=== PATIENT | female | born 1990 | race Caucasian/White ===

== ENCOUNTER 2016-06-02 17:32 | Emergency (ER) | payer OTHER ==
[2016-06-02] MEDS ORDERED: ONDANSETRON 4MG/2ML VIAL (J2405) As Ordered ONE (19:12)
[2016-06-02] MEDS ORDERED: PANTOPRAZOLE 40MG INJ (PROTONIX) (C9113) As Ordered ONE (19:12)
[2016-06-02 19:37] LABS: BASO % 0.1 % (0.0-1.0); EOS # 0.1 K/mm3 (0.0-0.50); EOS % 0.5 % (0.0-3.0); LARGE UNSTAINED CELL # 0.1 K/mm3 (0.0-0.4); LARGE UNSTAINED CELL % 0.7 % (0.0-4.0); LYMPH # 0.6 K/mm3 (1.5-6.5); LYMPH % 4.8 % (24.0-44.0); MEAN CORPUSCULAR HEMOGLOBIN 32.2 pg (27.0-33.0); MEAN CORPUSCULAR HGB CONC 34.1 g/dl (32.0-36.5); MEAN CORPUSCULAR VOLUME 94.6 fl (80.0-96.0); MONO # 0.3 K/mm3 (0.0-0.8); MONO % 2.2 % (0.0-5.0); NEUTROPHILS # 12.2 K/mm3 (1.8-7.7); NEUTROPHILS % 91.8 % (36.0-66.0); PLATELET COUNT, AUTOMATED 181 k/mm3 (150-450); RED CELL DISTRIBUTION WIDTH 11.8 % (11.5-14.5); WHITE BLOOD COUNT 13.2 K/mm3 (4.0-10.0)
[2016-06-02 19:57] LABS: ALBUMIN 4.1 GM/DL (3.2-5.2); ALBUMIN/GLOBULIN RATIO 1.17 (1.00-1.93); ALKALINE PHOSPHATASE 95 U/L (45-117); ALT/SGPT 45 U/L (12-78); AMYLASE 53 U/L (25-115); ANION GAP 8 MEQ/L (8-16); AST/SGOT 30 U/L (15-37); BILIRUBIN,DIRECT 0.1 MG/DL (0.0-0.2); BILIRUBIN,TOTAL 0.7 MG/DL (0.2-1.0); BLOOD UREA NITROGEN 14 MG/DL (7-18); CALCIUM LEVEL 9.1 MG/DL (8.5-10.1); CARBON DIOXIDE LEVEL 28 MEQ/L (21-32); CHLORIDE LEVEL 103 MEQ/L (98-107); CREATININE FOR GFR 0.92 MG/DL (0.55-1.02); GLOMERULAR FILTRATION RATE > 60.0 (>60); GLUCOSE, FASTING 101 MG/DL (70-105); POTASSIUM SERUM 3.7 MEQ/L (3.5-5.1); SODIUM LEVEL 139 MEQ/L (136-145); TOTAL PROTEIN 7.6 GM/DL (6.4-8.2)
[2016-06-02] MEDS ORDERED: NITROFURANTOIN (MACROBID) 100 MG CAP As Ordered ONE (20:42)
--- NOTE | 2016-06-02 20:49 | EDDOCDS ---
Physician Documentation [facility] Name: Neena Escoto Age: 25 yrs Sex: Female : 1990 Arrival Date: 06/02/2016 Time: 17:32 Bed I5 / M5 Private MD: MILTON Cardenas Disposition: 06/02/16 20:39 Discharged to Home/Self Care. Impression: Nausea and vomiting, Urinary tract infection, site not specified. - Condition is Stable. - Discharge Instructions: Nausea and Vomiting, Urinary Tract Infection. - Prescriptions for Prilosec 20 mg Oral Capsule - take 1 capsule by ORAL route once daily; 10 capsule. Macrobid 100 mg Oral Capsule - take 100 milligram by ORAL route every 12 hours for 10 days; 20 capsule. ZOFRAN ODT 4 mg - dissolve 1 tablet by ORAL route 4 times per day As needed do not chew, do not swallow whole; 10 tablet. - Medication Reconciliation, Local Pharmacy Hours form. - Follow up: MILTON Cardenas; When: Tomorrow; Reason: Recheck today's complaints, Continuance of care. - Problem is new. - Symptoms have improved. - Notes: USE MEDICATIONS INSTRUCTED, FOLLOW UP WITH YOUR DOCTOR TOMORROW, RETURN TO THE ER IF THE SYMPTOMS WORSEN OR BECOME CONCERNING Historical: - Allergies: no known allergies; - Home Meds: 1. none - PMHx: none; - PSHx: right ankle; - Social history: Smoking status: Patient states was never smoker of tobacco. No barriers to communication noted, The patient speaks fluent Slovak, Speaks appropriately for age. - Family history: Not pertinent. - : The pt / caregiver states he / she is not on anticoagulants. Home medication list is obtained from the patient. - Exposure Risk Screening:: None identified. 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 4 in. (162.56 cm); Pain 7/10; 19:56 BP 109 / 59 LA Supine (auto/reg); Pulse 95; Resp 18; Temp 98.3; Pulse Ox 99% ; ajs 19:56 BP 110 / 63 LA Standing (auto/reg); Pulse 93; ajs 19:56 BP 108 / 64 LA Sitting (auto/reg); Pulse 95; ajs 17:33 Body Mass Index 24.89 (65.77 kg, 162.56 cm) dem1 MDM: 18:59 Undress patient appropriately for examination ordered. ck7 18:59 UCG by Nursing ordered. ck7 18:59 IV Saline Lock ordered. ck7 18:59 NS 0.9% 1000 ml IV at bolus once ordered. ck7 18:59 Orthostatic VS ordered. ck7 18:59 Ondansetron 4 mg IVP once ordered. ck7 18:59 pantoprazole 40 mg IV at bolus once ordered. ck7 19:00 Amylase Ordered. EDMS 19:00 Basic Metabolic Profile Ordered. EDMS 19:00 CBC with Diff Ordered. EDMS 19:00 Lipase Ordered. EDMS 19:00 Liver Profile Ordered. EDMS 19:00 Urinalysis Ordered. EDMS 19:00 Urine Culture Ordered. EDMS 19:01 NOTHING BY MOUTH+DIET ordered. EDMS 19:57 CBC with Diff Reviewed. ck7 19:57 Urinalysis Reviewed. ck7 20:02 Amylase Reviewed. ck7 20:02 Basic Metabolic Profile Reviewed. ck7 20:02 Lipase Reviewed. ck7 20:02 Liver Profile Reviewed. ck7 20:27 Financial registration complete. gjb 20:36 Fluid Challenge ordered. ck7 20:39 Nitrofurantoin 100 mg PO once ordered. ck7 Point of Care Testing: Urine : 19:09 hCG Reading: Negative; Control Reading: Positive; ar3 Ranges: Administered Medications: 19:25 Drug: NS 0.9% 1000 ml [sodium chloride 0.9 % injection solution] Route: IV; Rate: rs3 bolus; Site: left antecubital; 19:30 Drug: Ondansetron 4 mg [ondansetron HCl 2 mg/mL intravenous solution (2 mL)] Route: rs3 IVP; Site: left antecubital; 19:35 Drug: pantoprazole 40 mg [pantoprazole 40 mg intravenous solution] Route: IV; Rate: rs3 bolus; Site: left antecubital; 20:47 Drug: Nitrofurantoin 100 mg Route: PO; rs3 Signatures: Dispatcher [employer] EDMS Velia GibsonRN RN rs3 Riley Mcdaniel, RPA-C RPA-Cck7 Asia Oviedo,RN RN Amena Pineda MTDD
--- NOTE | 2016-06-02 20:49 | EDDOCDS ---
Nurse's Notes [facility] Name: Neena Escoto Age: 25 yrs Sex: Female : 1990 Arrival Date: 06/02/2016 Time: 17:32 Bed I5 / M5 Private MD: MILTON Cardenas Diagnosis: Nausea and vomiting;Urinary tract infection, site not specified Presentation: 06/02 17:47 Presenting complaint: Patient states: pt c/o n/v and body aches. reports onset of ead vomiting this morning. Adult Sepsis Screening: The patient does not have new or worsening altered mentation. Systolic blood pressure is greater than 100. Patient has a qSOFA score of 0- Negative Sepsis Screen. Suicide/Homicide risk assessment- the patient denies having any suicidal and/or homicidal ideations and does not present with any other emotional, behavioral or mental health complaints. 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 Transition of care: patient was not received from another setting of care. 17:47 Acuity: MELISSA Level 3 ead 17:47 Method Of Arrival: Walkin/Carried/Asstd ead Triage Assessment: 17:49 General: Appears in no apparent distress, comfortable, well nourished, well groomed, ead Behavior is appropriate for age, cooperative, pleasant. Pain: Location: all over body aches Pain currently is 5 out of 10 on a pain scale. Respiratory: Airway is patent Respiratory effort is even, unlabored. GI: Reports nausea, vomiting. Derm: Skin is pink, warm & dry. 17:50 Pt Declines HIV testing. ead LAWN MOWER: 17:49 LMP 05/11/2016 ead Historical: - Allergies: no known allergies; - Home Meds: 1. none - PMHx: none; - PSHx: right ankle; - Social history: Smoking status: Patient states was never smoker of tobacco. No barriers to communication noted, The patient speaks fluent Irish, Speaks appropriately for age. - Family history: Not pertinent. - : The pt / caregiver states he / she is not on anticoagulants. Home medication list is obtained from the patient. - Exposure Risk Screening:: None identified. Screenin:36 Screening information is obtained from the patient. Fall risk: No risks identified. rs3 Assistance ADL's: requires no assistance with activities of daily living. Abuse/DV Screen: The patient / caregiver reports he/she is: not in a situation that causes fear, pain or injury. Nutritional screening: No deficits noted. Advance Directives: Currently, there is no health care proxy. There is no active DNR order. home support is adequate. Assessment: 19:36 Adult Sepsis Screening: The patient does not have new or worsening altered mentation. rs3 Patient's respiratory rate is less than 22. Systolic blood pressure is greater than 100. General: Appears in no apparent distress, comfortable, Behavior is appropriate for age, cooperative. Pain: Location: right upper quadrant and left upper quadrant Pain currently is 5 out of 10 on a pain scale. Neurological: Level of Consciousness is awake, alert, Oriented to person, place, time. Cardiovascular: Capillary refill < 3 seconds. Cardiovascular: Heart tones S1 S2 present Chest pain is denied. Respiratory: Airway is patent Respiratory effort is even, unlabored, Respiratory pattern is regular, symmetrical. GI: Abdomen is flat, non- distended Bowel sounds present X 4 quads. Abd is soft and non tender X 4 quads. Derm: Skin is pink, warm & dry. 20:47 Reassessment: Patient appears in no apparent distress at this time. Patient denies pain rs3 at this time. Patient states feeling better. Patient states symptoms have improved. Vital Signs: 17:33 BP 132 / 76; Pulse 129; Resp 18; Temp 99.8(O); Pulse Ox 96% on R/A; Weight 65.77 kg; dem1 Height 5 ft. 4 in. (162.56 cm); Pain 7/10; 19:56 BP 109 / 59 LA Supine (auto/reg); Pulse 95; Resp 18; Temp 98.3; Pulse Ox 99% ; ajs 19:56 BP 110 / 63 LA Standing (auto/reg); Pulse 93; ajs 19:56 BP 108 / 64 LA Sitting (auto/reg); Pulse 95; ajs 17:33 Body Mass Index 24.89 (65.77 kg, 162.56 cm) [facility] Vitals: 17:33 Log In Time: June 02, 2016 at 17:30. [facility] ED Course: 17:32 Patient visited by Gabriella Donovan. [facility] 17:32 Patient moved to Waiting [facility] 17:33 Theresa [facility] is Private Physician. dem1 17:33 Patient visited by Gabriella Donovan. dem1 17:46 Patient moved to Pre RCE ead 17:48 Triage Initiated ead 18:36 Patient moved to Triage 3 ml6 18:47 Riley Mcdaniel R[facility]-C [facility] ck7 18:47 Anthony Ewing DO is Attending Physician. ck7 18:47 Patient visited by Riley Mcdaniel RPA-C. ck7 19:04 Jacki Lares, SHALOM is Primary Nurse. js13 19:04 Patient moved to I5 / M5 js13 19:04 Urinalysis Sent. ar3 19:04 Urine Culture Sent. ar3 19:06 Primary Nurse role handed off by Jacki Lares, SHALOM jjr 19:10 Patient visited by Leydi Bennett PCA. ar3 19:36 The patient / caregiver is instructed regarding the plan of care and ED course. rs3 19:36 Inserted saline lock: 20 gauge in left antecubital area The patient tolerated the rs3 procedure well. No procedures done that require assistance. 19:38 Patient visited by Velia Gibson RN. rs3 19:57 Patient visited by Missy Nicholas. ajs 20:36 Patient visited by Riley Mcdaniel RPA-C. ck7 20:39 MILTON Cardenas is Referral Physician. ck7 Administered Medications: 19:25 Drug: NS 0.9% 1000 ml [sodium chloride 0.9 % injection solution] Route: IV; Rate: rs3 bolus; Site: left antecubital; 19:30 Drug: Ondansetron 4 mg [ondansetron HCl 2 mg/mL intravenous solution (2 mL)] Route: rs3 IVP; Site: left antecubital; 19:35 Drug: pantoprazole 40 mg [pantoprazole 40 mg intravenous solution] Route: IV; Rate: rs3 bolus; Site: left antecubital; 20:47 Drug: Nitrofurantoin 100 mg Route: PO; rs3 Point of Care Testing: Urine : 19:09 hCG Reading: Negative; Control Reading: Positive; ar3 Ranges: Order Results: Lab Order: Amylase; SPEC'M 06/02/16 19:24 Test: AMYLASE; Value: 53; Range: 25-115; Units: U/L; Status: F Lab Order: Basic Metabolic Profile; SPEC'M 06/02/16 19:24 Test: GLUCOSE, FASTING; Value: 101; Range: 70-105; Units: MG/DL; Status: F Test: BLOOD UREA NITROGEN; Value: 14; Range: 7-18; Units: MG/DL; Status: F Test: CREATININE FOR GFR; Value: 0.92; Range: 0.55-1.02; Units: MG/DL; Status: F Test: GLOMERULAR FILTRATION RATE; Value: > 60.0; Range: >60; Status: F Test: SODIUM LEVEL; Value: 139; Range: 136-145; Units: MEQ/L; Status: F Test: POTASSIUM SERUM; Value: 3.7; Range: 3.5-5.1; Units: MEQ/L; Status: F Test: CHLORIDE LEVEL; Value: 103; Range: 98-107; Units: MEQ/L; Status: F Test: CARBON DIOXIDE LEVEL; Value: 28; Range: 21-32; Units: MEQ/L; Status: F Test: ANION GAP; Value: 8; Range: 8-16; Units: MEQ/L; Status: F Test: CALCIUM LEVEL; Value: 9.1; Range: 8.5-10.1; Units: MG/DL; Status: F Test Note: ; Units are mL/min/1.73 m2 Chronic Kidney Disease Staging per NKF: Stage I & II GFR >=60 Normal to Mildly Decreased Stage III GFR 30-59 Moderately Decreased Stage IV GFR 15-29 Severely Decreased Stage V GFR <15 Very Little GFR Left ESRD GFR <15 on [employer]RO[employer] ATTENDANT Lab Order: CBC with Diff; SPEC'M 06/02/16 19:24 Test: WHITE BLOOD COUNT; Value: 13.2; Range: 4.0-10.0; Abnormal: Above high normal; Units: K/mm3; Status: F Test: RED BLOOD COUNT; Value: 4.14; Range: 4.00-5.40; Units: M/mm3; Status: F Test: HEMOGLOBIN; Value: 13.4; Range: 12.0-16.0; Units: g/dl; Status: F Test: HEMATOCRIT; Value: 39.2; Range: 36.0-47.0; Units: %; Status: F Test: MEAN CORPUSCULAR VOLUME; Value: 94.6; Range: 80.0-96.0; Units: fl; Status: F Test: MEAN CORPUSCULAR HEMOGLOBIN; Value: 32.2; Range: 27.0-33.0; Units: pg; Status: F Test: MEAN CORPUSCULAR HGB CONC; Value: 34.1; Range: 32.0-36.5; Units: g/dl; Status: F Test: RED CELL DISTRIBUTION WIDTH; Value: 11.8; Range: 11.5-14.5; Units: %; Status: F Test: PLATELET COUNT, AUTOMATED; Value: 181; Range: 150-450; Units: k/mm3; Status: F Test: NEUTROPHILS %; Value: 91.8; Range: 36.0-66.0; Abnormal: Above high normal; Units: %; Status: F Test: LYMPH %; Value: 4.8; Range: 24.0-44.0; Abnormal: Below low normal; Units: %; Status: F Test: MONO %; Value: 2.2; Range: 0.0-5.0; Units: %; Status: F Test: EOS %; Value: 0.5; Range: 0.0-3.0; Units: %; Status: F Test: BASO %; Value: 0.1; Range: 0.0-1.0; Units: %; Status: F Test: LARGE UNSTAINED CELL %; Value: 0.7; Range: 0.0-4.0; Units: %; Status: F Test: NEUTROPHILS #; Value: 12.2; Range: 1.8-7.7; Abnormal: Above high normal; Units: K/mm3; Status: F Test: LYMPH #; Value: 0.6; Range: 1.5-6.5; Abnormal: Below low normal; Units: K/mm3; Status: F Test: MONO #; Value: 0.3; Range: 0.0-0.8; Units: K/mm3; Status: F Test: EOS #; Value: 0.1; Range: 0.0-0.50; Units: K/mm3; Status: F Test: BASO #; Value: 0.0; Range: 0.0-0.2; Units: K/mm3; Status: F Test: LARGE UNSTAINED CELL #; Value: 0.1; Range: 0.0-0.4; Units: K/mm3; Status: F Lab Order: Lipase; [facility] 06/02/16 19:24 Test: LIPASE; Value: 89; Range: 73-393; Units: U/L; Status: F Lab Order: Liver Profile; [facility] 06/02/16 19:24 Test: AST/SGOT; Value: 30; Range: 15-37; Units: U/L; Status: F Test: ALT/SGPT; Value: 45; Range: 12-78; Units: U/L; Status: F Test: ALKALINE PHOSPHATASE; Value: 95; Range: 45-117; Units: U/L; Status: F Test: BILIRUBIN,TOTAL; Value: 0.7; Range: 0.2-1.0; Units: MG/DL; Status: F Test: BILIRUBIN,DIRECT; Value: 0.1; Range: 0.0-0.2; Units: MG/DL; Status: F Test: TOTAL PROTEIN; Value: 7.6; Range: 6.4-8.2; Units: GM/DL; Status: F Test: ALBUMIN; Value: 4.1; Range: 3.2-5.2; Units: GM/DL; Status: F Test: ALBUMIN/GLOBULIN RATIO; Value: 1.17; Range: 1.00-1.93; Status: F Lab Order: Urinalysis; [facility]' 06/02/16 19:04 Test: APPEARANCE, URINE; Value: HAZY; Range: CLEAR; Status: F Test: COLOR, URINE; Value: YELLOW; Range: YELLOW; Status: F Test: PH,URINE; Value: 6.0; Range: 5.0-9.0; Units: UNITS; Status: F Test: SPECIFIC GRAVITY URINE AUTO; Value: 1.026; Range: 1.002-1.035; Status: F Test: PROTEIN, URINE AUTO; Value: 1+; Range: NEGATIVE; Abnormal: Above high normal; Units: mg/dL; Status: F Test: GLUCOSE, URINE (UA) AUTO; Value: NEGATIVE; Range: NEGATIVE; Units: mg/dL; Status: F Test: KETONE, URINE AUTO; Value: NEGATIVE; Range: NEGATIVE; Units: mg/dL; Status: F Test: UROBILINOGEN, URINE AUTO; Value: 0.2; Range: 0.0-2.0; Units: mg/dL; Status: F Test: BILIRUBIN, URINE AUTO; Value: NEGATIVE; Range: NEGATIVE; Status: F Test: NITRITE, URINE AUTO; Value: NEGATIVE; Range: NEGATIVE; Status: F Test: LEUKOCYTE ESTERASE, URINE AUTO; Value: 2+; Range: NEGATIVE; Abnormal: Above high normal; Status: F Test: BLOOD, URINE BLOOD; Value: NEGATIVE; Range: NEGATIVE; Status: F Test: WBC, URINE AUTO; Value: 8; Range: 0-3; Abnormal: Above high normal; Units: /HPF; Status: F Test: RBC, URINE AUTO; Value: 6; Range: 0-3; Abnormal: Above high normal; Units: /HPF; Status: F Test: BACTERIA, URINE AUTO; Value: 1+; Range: NEGATIVE; Abnormal: Above high normal; Status: F Test: SQUAMOUS EPITHELIAL CELL UR AU; Value: 5; Range: 0-6; Units: /HPF; Status: F Test: MUCUS, URINE; Value: LARGE; Range: NEGATIVE; Status: F Test: HYALINE CAST, URINE AUTO; Value: 0; Range: 0-1; Units: /LPF; Status: F Outcome: 20:39 Discharge ordered by Provider. ck7 20:47 Discharge Assessment: patient administered narcotics - no. The following High Risk rs3 Discharge criteria are identified: None. Discharged to home with family. Condition: stable. Discharge instructions given to patient, Instructed on discharge instructions, follow up and referral plans. medication usage, Demonstrated understanding of instructions, medications, Pt was receptive of discharge instructions/ teaching. Prescriptions given X 3. No special radiology studies were completed. Property :Personal belongings accompany Pt. 20:47 Patient left the ED. rs3 Signatures: Jacki Lares RN RN Velia BrennanRN RN rs3 Ravi Martinez RN RN ml6 Leydi Bennett, HISTOLOGIC TECHNICIAN HISTOLOGIC TECHNICIAN ar3 Missy Nicholas Demeishia dem1 Sullivan, JenniferRN RN js13 Riley Mcdaniel, RPA-C RPA-Cck7 Asia OviedoRN RN jaime Corrections: (The following items were deleted from the chart) 17:34 17:33 BP 132 / 6; Pulse 129bpm; Resp 18bpm; Pulse Ox 96% RA; Temp 99.8F Oral; 65.77 kg; dem1 Height 5 ft. 4 in.; BMI: 24.8; Pain 7/10; dem1 MTDD
--- NOTE | 2016-06-04 21:48 | EDDOCDS ---
Physician Documentation [facility] Name: Neena Escoto Age: 25 yrs Sex: Female : 1990 Arrival Date: 06/02/2016 Time: 17:32 Bed I5 / M5 Private MD: MILTON Cardenas Disposition: 06/02/16 20:39 Discharged to Home/Self Care. Impression: Nausea and vomiting, Urinary tract infection, site not specified. - Condition is Stable. - Discharge Instructions: Nausea and Vomiting, Urinary Tract Infection. - Prescriptions for Prilosec 20 mg Oral Capsule - take 1 capsule by ORAL route once daily; 10 capsule. Macrobid 100 mg Oral Capsule - take 100 milligram by ORAL route every 12 hours for 10 days; 20 capsule. ZOFRAN ODT 4 mg - dissolve 1 tablet by ORAL route 4 times per day As needed do not chew, do not swallow whole; 10 tablet. - Medication Reconciliation, Local Pharmacy Hours form. - Follow up: MILTON Cardenas; When: Tomorrow; Reason: Recheck today's complaints, Continuance of care. - Problem is new. - Symptoms have improved. - Notes: USE MEDICATIONS INSTRUCTED, FOLLOW UP WITH YOUR DOCTOR TOMORROW, RETURN TO THE ER IF THE SYMPTOMS WORSEN OR BECOME CONCERNING Historical: - Allergies: no known allergies; - Home Meds: 1. none - PMHx: none; - PSHx: right ankle; - Social history: Smoking status: Patient states was never smoker of tobacco. No barriers to communication noted, The patient speaks fluent [place], Speaks appropriately for age. - Family history: Not pertinent. - : The pt / caregiver states he / she is not on anticoagulants. Home medication list is obtained from the patient. - Exposure Risk Screening:: None identified. 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 4 in. (162.56 cm); Pain 7/10; 19:56 BP 109 / 59 LA Supine (auto/reg); Pulse 95; Resp 18; Temp 98.3; Pulse Ox 99% ; ajs 19:56 BP 110 / 63 LA Standing (auto/reg); Pulse 93; ajs 19:56 BP 108 / 64 LA Sitting (auto/reg); Pulse 95; ajs 17:33 Body Mass Index 24.89 (65.77 kg, 162.56 cm) dem1 MDM: 18:59 Undress patient appropriately for examination ordered. ck7 18:59 UCG by Nursing ordered. ck7 18:59 IV Saline Lock ordered. ck7 18:59 NS 0.9% 1000 ml IV at bolus once ordered. ck7 18:59 Orthostatic VS ordered. ck7 18:59 Ondansetron 4 mg IVP once ordered. ck7 18:59 pantoprazole 40 mg IV at bolus once ordered. ck7 19:00 Amylase Ordered. EDMS 19:00 Basic Metabolic Profile Ordered. EDMS 19:00 CBC with Diff Ordered. EDMS 19:00 Lipase Ordered. EDMS 19:00 Liver Profile Ordered. EDMS 19:00 Urinalysis Ordered. EDMS 19:00 Urine Culture Ordered. EDMS 19:01 NOTHING BY MOUTH+DIET ordered. EDMS 19:57 CBC with Diff Reviewed. ck7 19:57 Urinalysis Reviewed. ck7 20:02 Amylase Reviewed. ck7 20:02 Basic Metabolic Profile Reviewed. ck7 20:02 Lipase Reviewed. ck7 20:02 Liver Profile Reviewed. ck7 20:27 Financial registration complete. gjb 20:36 Fluid Challenge ordered. ck7 20:39 Nitrofurantoin 100 mg PO once ordered. ck7 21:21 [facility] Payment Agreement was scanned into [employer] and attached to record. b 06/03 11:10 T-Sheet-- Draft Copy was scanned into [employer] and attached to record. Point of Care Testing: Urine : 06/02 19:09 hCG Reading: Negative; Control Reading: Positive; ar3 Ranges: Administered Medications: 19:25 Drug: NS 0.9% 1000 ml [sodium chloride 0.9 % injection solution] Route: IV; Rate: rs3 bolus; Site: left antecubital; 19:30 Drug: Ondansetron 4 mg [ondansetron HCl 2 mg/mL intravenous solution (2 mL)] Route: rs3 IVP; Site: left antecubital; 19:35 Drug: pantoprazole 40 mg [pantoprazole 40 mg intravenous solution] Route: IV; Rate: rs3 bolus; Site: left antecubital; 20:47 Drug: Nitrofurantoin 100 mg Route: PO; rs3 Signatures: Dispatcher [employer] Ciara Velasquez, Reg Reg gb Velia Gibson,SHALOM RN rs3 Riley Mcdaniel, RPA-C RPA-Cck7 Asia Oviedo RN RN ead Beck, Gabriela gjb The chart was reviewed and I authenticate all verbal orders and agree with the evaluation and treatment provided.Attachments: 21:21 [facility] Payment Agreement gjb 06/03 11:10 T-Sheet-- Draft Copy gb Chart Complete MTDD
--- NOTE | 2016-06-04 21:48 | EDDOCDS ---
Nurse's Notes [facility] Name: Neena Escoto Age: 25 yrs Sex: Female : 1990 Arrival Date: 06/02/2016 Time: 17:32 Bed I5 / M5 Private MD: MILTON Cardenas Diagnosis: Nausea and vomiting;Urinary tract infection, site not specified Presentation: 06/02 17:47 Presenting complaint: Patient states: pt c/o n/v and body aches. reports onset of ead vomiting this morning. Adult Sepsis Screening: The patient does not have new or worsening altered mentation. Systolic blood pressure is greater than 100. Patient has a qSOFA score of 0- Negative Sepsis Screen. Suicide/Homicide risk assessment- the patient denies having any suicidal and/or homicidal ideations and does not present with any other emotional, behavioral or mental health complaints. 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 Transition of care: patient was not received from another setting of care. 17:47 Acuity: MELISSA Level 3 ead 17:47 Method Of Arrival: Walkin/Carried/Asstd ead Triage Assessment: 17:49 General: Appears in no apparent distress, comfortable, well nourished, well groomed, ead Behavior is appropriate for age, cooperative, pleasant. Pain: Location: all over body aches Pain currently is 5 out of 10 on a pain scale. Respiratory: Airway is patent Respiratory effort is even, unlabored. GI: Reports nausea, vomiting. Derm: Skin is pink, warm & dry. 17:50 Pt Declines HIV testing. 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 none - PMHx: none; - PSHx: right ankle; - Social history: Smoking status: Patient states was never smoker of tobacco. No barriers to communication noted, The patient speaks fluent Macedonian, Speaks appropriately for age. - Family history: Not pertinent. - : The pt / caregiver states he / she is not on anticoagulants. Home medication list is obtained from the patient. - Exposure Risk Screening:: None identified. Screenin:36 Screening information is obtained from the patient. Fall risk: No risks identified. rs3 Assistance ADL's: requires no assistance with activities of daily living. Abuse/DV Screen: The patient / caregiver reports he/she is: not in a situation that causes fear, pain or injury. Nutritional screening: No deficits noted. Advance Directives: Currently, there is no health care proxy. There is no active DNR order. home support is adequate. Assessment: 19:36 Adult Sepsis Screening: The patient does not have new or worsening altered mentation. rs3 Patient's respiratory rate is less than 22. Systolic blood pressure is greater than 100. General: Appears in no apparent distress, comfortable, Behavior is appropriate for age, cooperative. Pain: Location: right upper quadrant and left upper quadrant Pain currently is 5 out of 10 on a pain scale. Neurological: Level of Consciousness is awake, alert, Oriented to person, place, time. Cardiovascular: Capillary refill < 3 seconds. Cardiovascular: Heart tones S1 S2 present Chest pain is denied. Respiratory: Airway is patent Respiratory effort is even, unlabored, Respiratory pattern is regular, symmetrical. GI: Abdomen is flat, non- distended Bowel sounds present X 4 quads. Abd is soft and non tender X 4 quads. Derm: Skin is pink, warm & dry. 20:47 Reassessment: Patient appears in no apparent distress at this time. Patient denies pain rs3 at this time. Patient states feeling better. Patient states symptoms have improved. Vital Signs: 17:33 BP 132 / 76; Pulse 129; Resp 18; Temp 99.8(O); Pulse Ox 96% on R/A; Weight 65.77 kg; dem1 Height 5 ft. 4 in. (162.56 cm); Pain 7/10; 19:56 BP 109 / 59 LA Supine (auto/reg); Pulse 95; Resp 18; Temp 98.3; Pulse Ox 99% ; ajs 19:56 BP 110 / 63 LA Standing (auto/reg); Pulse 93; ajs 19:56 BP 108 / 64 LA Sitting (auto/reg); Pulse 95; ajs 17:33 Body Mass Index 24.89 (65.77 kg, 162.56 cm) [facility] Vitals: 17:33 Log In Time: June 02, 2016 at 17:30. [facility] ED Course: 17:32 Patient visited by Gabriella Donovan. [facility] 17:32 Patient moved to Waiting [facility] 17:33 Theresa MUSCOGEE is Private Physician. dem1 17:33 Patient visited by Gabriella Donovan. dem1 17:46 Patient moved to Pre RCE ead 17:48 Triage Initiated ead 18:36 Patient moved to Triage 3 ml6 18:47 Riley [facility]cd[facility]-C [facility] ck7 18:47 Anthony Ewing DO is Attending Physician. ck7 18:47 Patient visited by Riley Mcdaniel RPA-C. ck7 19:04 Jacki Lares, SHALOM is Primary Nurse. js13 19:04 Patient moved to I5 / M5 js13 19:04 Urinalysis Sent. ar3 19:04 Urine Culture Sent. ar3 19:06 Primary Nurse role handed off by Jacki Lares, SHALOM jjr 19:10 Patient visited by Leydi Bennett PCA. ar3 19:36 The patient / caregiver is instructed regarding the plan of care and ED course. rs3 19:36 Inserted saline lock: 20 gauge in left antecubital area The patient tolerated the rs3 procedure well. No procedures done that require assistance. 19:38 Patient visited by Velia Gibson,SHALOM. rs3 19:57 Patient visited by Missy Nicholas. ajs 20:36 Patient visited by Riley Mcdaniel RPA-C. ck7 20:39 MILTON Cardenas is Referral Physician. ck7 21:18 Patient name changed from Neena\S\\S\Escoto\S\ to Neena\S\R\S\Escoto. EDMS 21:21 [facility] [place] was scanned into [employer] and attached to record. gjb 06/03 11:10 T-Sheet-- Draft Copy was scanned into [employer] and attached to record. gb Administered Medications: 06/02 19:25 Drug: NS 0.9% 1000 ml [sodium chloride 0.9 % injection solution] Route: IV; Rate: rs3 bolus; Site: left antecubital; 19:30 Drug: Ondansetron 4 mg [ondansetron HCl 2 mg/mL intravenous solution (2 mL)] Route: rs3 IVP; Site: left antecubital; 19:35 Drug: pantoprazole 40 mg [pantoprazole 40 mg intravenous solution] Route: IV; Rate: rs3 bolus; Site: left antecubital; 20:47 Drug: Nitrofurantoin 100 mg Route: PO; rs3 Point of Care Testing: Urine : 19:09 hCG Reading: Negative; Control Reading: Positive; ar3 Ranges: Order Results: Lab Order: Amylase; SPEC'M 06/02/16 19:24 Test: AMYLASE; Value: 53; Range: 25-115; Units: U/L; Status: F Lab Order: Basic Metabolic Profile; SPEC'M 06/02/16 19:24 Test: GLUCOSE, FASTING; Value: 101; Range: 70-105; Units: MG/DL; Status: F Test: BLOOD UREA NITROGEN; Value: 14; Range: 7-18; Units: MG/DL; Status: F Test: CREATININE FOR GFR; Value: 0.92; Range: 0.55-1.02; Units: MG/DL; Status: F Test: GLOMERULAR FILTRATION RATE; Value: > 60.0; Range: >60; Status: F Test: SODIUM LEVEL; Value: 139; Range: 136-145; Units: MEQ/L; Status: F Test: POTASSIUM SERUM; Value: 3.7; Range: 3.5-5.1; Units: MEQ/L; Status: F Test: CHLORIDE LEVEL; Value: 103; Range: 98-107; Units: MEQ/L; Status: F Test: CARBON DIOXIDE LEVEL; Value: 28; Range: 21-32; Units: MEQ/L; Status: F Test: ANION GAP; Value: 8; Range: 8-16; Units: MEQ/L; Status: F Test: CALCIUM LEVEL; Value: 9.1; Range: 8.5-10.1; Units: MG/DL; Status: F Test Note: ; Units are mL/min/1.73 m2 Chronic Kidney Disease Staging per NKF: Stage I & II GFR >=60 Normal to Mildly Decreased Stage III GFR 30-59 Moderately Decreased Stage IV GFR 15-29 Severely Decreased Stage V GFR <15 Very Little GFR Left ESRD GFR <15 on [employer] Lab Order: CBC with Diff; SPEC'M 06/02/16 19:24 Test: WHITE BLOOD COUNT; Value: 13.2; Range: 4.0-10.0; Abnormal: Above high normal; Units: K/mm3; Status: F Test: RED BLOOD COUNT; Value: 4.14; Range: 4.00-5.40; Units: M/mm3; Status: F Test: HEMOGLOBIN; Value: 13.4; Range: 12.0-16.0; Units: g/dl; Status: F Test: HEMATOCRIT; Value: 39.2; Range: 36.0-47.0; Units: %; Status: F Test: MEAN CORPUSCULAR VOLUME; Value: 94.6; Range: 80.0-96.0; Units: fl; Status: F Test: MEAN CORPUSCULAR HEMOGLOBIN; Value: 32.2; Range: 27.0-33.0; Units: pg; Status: F Test: MEAN CORPUSCULAR HGB CONC; Value: 34.1; Range: 32.0-36.5; Units: g/dl; Status: F Test: RED CELL DISTRIBUTION WIDTH; Value: 11.8; Range: 11.5-14.5; Units: %; Status: F Test: PLATELET COUNT, AUTOMATED; Value: 181; Range: 150-450; Units: k/mm3; Status: F Test: NEUTROPHILS %; Value: 91.8; Range: 36.0-66.0; Abnormal: Above high normal; Units: %; Status: F Test: LYMPH %; Value: 4.8; Range: 24.0-44.0; Abnormal: Below low normal; Units: %; Status: F Test: MONO %; Value: 2.2; Range: 0.0-5.0; Units: %; Status: F Test: EOS %; Value: 0.5; Range: 0.0-3.0; Units: %; Status: F Test: BASO %; Value: 0.1; Range: 0.0-1.0; Units: %; Status: F Test: LARGE UNSTAINED CELL %; Value: 0.7; Range: 0.0-4.0; Units: %; Status: F Test: NEUTROPHILS #; Value: 12.2; Range: 1.8-7.7; Abnormal: Above high normal; Units: K/mm3; Status: F Test: LYMPH #; Value: 0.6; Range: 1.5-6.5; Abnormal: Below low normal; Units: K/mm3; Status: F Test: MONO #; Value: 0.3; Range: 0.0-0.8; Units: K/mm3; Status: F Test: EOS #; Value: 0.1; Range: 0.0-0.50; Units: K/mm3; Status: F Test: BASO #; Value: 0.0; Range: 0.0-0.2; Units: K/mm3; Status: F Test: LARGE UNSTAINED CELL #; Value: 0.1; Range: 0.0-0.4; Units: K/mm3; Status: F Lab Order: Lipase; [facility] 06/02/16 19:24 Test: LIPASE; Value: 89; Range: 73-393; Units: U/L; Status: F Lab Order: Liver Profile; [facility] 06/02/16 19:24 Test: AST/SGOT; Value: 30; Range: 15-37; Units: U/L; Status: F Test: ALT/SGPT; Value: 45; Range: 12-78; Units: U/L; Status: F Test: ALKALINE PHOSPHATASE; Value: 95; Range: 45-117; Units: U/L; Status: F Test: BILIRUBIN,TOTAL; Value: 0.7; Range: 0.2-1.0; Units: MG/DL; Status: F Test: BILIRUBIN,DIRECT; Value: 0.1; Range: 0.0-0.2; Units: MG/DL; Status: F Test: TOTAL PROTEIN; Value: 7.6; Range: 6.4-8.2; Units: GM/DL; Status: F Test: ALBUMIN; Value: 4.1; Range: 3.2-5.2; Units: GM/DL; Status: F Test: ALBUMIN/GLOBULIN RATIO; Value: 1.17; Range: 1.00-1.93; Status: F Lab Order: Urinalysis; [facility] 06/02/16 19:04 Test: APPEARANCE, URINE; Value: HAZY; Range: CLEAR; Status: F Test: COLOR, URINE; Value: YELLOW; Range: YELLOW; Status: F Test: PH,URINE; Value: 6.0; Range: 5.0-9.0; Units: UNITS; Status: F Test: SPECIFIC GRAVITY URINE AUTO; Value: 1.026; Range: 1.002-1.035; Status: F Test: PROTEIN, URINE AUTO; Value: 1+; Range: NEGATIVE; Abnormal: Above high normal; Units: mg/dL; Status: F Test: GLUCOSE, URINE (UA) AUTO; Value: NEGATIVE; Range: NEGATIVE; Units: mg/dL; Status: F Test: KETONE, URINE AUTO; Value: NEGATIVE; Range: NEGATIVE; Units: mg/dL; Status: F Test: UROBILINOGEN, URINE AUTO; Value: 0.2; Range: 0.0-2.0; Units: mg/dL; Status: F Test: BILIRUBIN, URINE AUTO; Value: NEGATIVE; Range: NEGATIVE; Status: F Test: NITRITE, URINE AUTO; Value: NEGATIVE; Range: NEGATIVE; Status: F Test: LEUKOCYTE ESTERASE, URINE AUTO; Value: 2+; Range: NEGATIVE; Abnormal: Above high normal; Status: F Test: BLOOD, URINE BLOOD; Value: NEGATIVE; Range: NEGATIVE; Status: F Test: WBC, URINE AUTO; Value: 8; Range: 0-3; Abnormal: Above high normal; Units: /HPF; Status: F Test: RBC, URINE AUTO; Value: 6; Range: 0-3; Abnormal: Above high normal; Units: /HPF; Status: F Test: BACTERIA, URINE AUTO; Value: 1+; Range: NEGATIVE; Abnormal: Above high normal; Status: F Test: SQUAMOUS EPITHELIAL CELL UR AU; Value: 5; Range: 0-6; Units: /HPF; Status: F Test: MUCUS, URINE; Value: LARGE; Range: NEGATIVE; Status: F Test: HYALINE CAST, URINE AUTO; Value: 0; Range: 0-1; Units: /LPF; Status: F Lab Order: Urine Culture; SPEC'M 06/02/16 19:04 Test: URINE CULTURE; Value: <EXTERNAL COMMENT eCWMed> FULL REPORT IN LAB NOTES (eCW and Medent).; Status: F Test: URINE CULTURE; Value: URINE CULTURE RESULT NO GROWTH; Status: F Outcome: 20:39 Discharge ordered by Provider. ck7 20:47 Discharge Assessment: patient administered narcotics - no. The following High Risk rs3 Discharge criteria are identified: None. Discharged to home with family. Condition: stable. Discharge instructions given to patient, Instructed on discharge instructions, follow up and referral plans. medication usage, Demonstrated understanding of instructions, medications, Pt was receptive of discharge instructions/ teaching. Prescriptions given X 3. No special radiology studies were completed. Property :Personal belongings accompany Pt. 20:47 Patient left the ED. rs3 Signatures: Dispatcher [employer] EDMS Ciara Dubon, Reg Reg gb Jacki Lares, RN RN Velia BrennanRN RN rs3 Ravi Martinez RN RN ml6 Leydi Bennett, LAB ANALYST LAB ANALYST ar3 Missy Nicholas Demeishia dem1 Nereida JamaRN RN js13 Riley Mcdaniel, RPA-C RPA-Cck7 Asia Oviedo,RN RN Amena Pineda Corrections: (The following items were deleted from the chart) 17:34 17:33 BP 132 / 6; Pulse 129bpm; Resp 18bpm; Pulse Ox 96% RA; Temp 99.8F Oral; 65.77 kg; dem1 Height 5 ft. 4 in.; BMI: 24.8; Pain 7/10; dem1 Chart Complete MTDD
--- NOTE | 2016-06-04 21:48 | EDDOCDS ---
Physician Documentation [facility] Name: Neena Escoto Age: 25 yrs Sex: Female : 1990 Arrival Date: 06/02/2016 Time: 17:32 Bed I5 / M5 Private MD: MILTON Cardenas Disposition: 06/02/16 20:39 Discharged to Home/Self Care. Impression: Nausea and vomiting, Urinary tract infection, site not specified. - Condition is Stable. - Discharge Instructions: Nausea and Vomiting, Urinary Tract Infection. - Prescriptions for Prilosec 20 mg Oral Capsule - take 1 capsule by ORAL route once daily; 10 capsule. Macrobid 100 mg Oral Capsule - take 100 milligram by ORAL route every 12 hours for 10 days; 20 capsule. ZOFRAN ODT 4 mg - dissolve 1 tablet by ORAL route 4 times per day As needed do not chew, do not swallow whole; 10 tablet. - Medication Reconciliation, Local Pharmacy Hours form. - Follow up: MILTON Cardenas; When: Tomorrow; Reason: Recheck today's complaints, Continuance of care. - Problem is new. - Symptoms have improved. - Notes: USE MEDICATIONS INSTRUCTED, FOLLOW UP WITH YOUR DOCTOR TOMORROW, RETURN TO THE ER IF THE SYMPTOMS WORSEN OR BECOME CONCERNING Historical: - Allergies: no known allergies; - Home Meds: 1. none - PMHx: none; - PSHx: right ankle; - Social history: Smoking status: Patient states was never smoker of tobacco. No barriers to communication noted, The patient speaks fluent Bruneian, Speaks appropriately for age. - Family history: Not pertinent. - : The pt / caregiver states he / she is not on anticoagulants. Home medication list is obtained from the patient. - Exposure Risk Screening:: None identified. 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 4 in. (162.56 cm); Pain 7/10; 19:56 BP 109 / 59 LA Supine (auto/reg); Pulse 95; Resp 18; Temp 98.3; Pulse Ox 99% ; ajs 19:56 BP 110 / 63 LA Standing (auto/reg); Pulse 93; ajs 19:56 BP 108 / 64 LA Sitting (auto/reg); Pulse 95; ajs 17:33 Body Mass Index 24.89 (65.77 kg, 162.56 cm) dem1 MDM: 18:59 Undress patient appropriately for examination ordered. ck7 18:59 UCG by Nursing ordered. ck7 18:59 IV Saline Lock ordered. ck7 18:59 NS 0.9% 1000 ml IV at bolus once ordered. ck7 18:59 Orthostatic VS ordered. ck7 18:59 Ondansetron 4 mg IVP once ordered. ck7 18:59 pantoprazole 40 mg IV at bolus once ordered. ck7 19:00 Amylase Ordered. EDMS 19:00 Basic Metabolic Profile Ordered. EDMS 19:00 CBC with Diff Ordered. EDMS 19:00 Lipase Ordered. EDMS 19:00 Liver Profile Ordered. EDMS 19:00 Urinalysis Ordered. EDMS 19:00 Urine Culture Ordered. EDMS 19:01 NOTHING BY MOUTH+DIET ordered. EDMS 19:57 CBC with Diff Reviewed. ck7 19:57 Urinalysis Reviewed. ck7 20:02 Amylase Reviewed. ck7 20:02 Basic Metabolic Profile Reviewed. ck7 20:02 Lipase Reviewed. ck7 20:02 Liver Profile Reviewed. ck7 20:27 Financial registration complete. gjb 20:36 Fluid Challenge ordered. ck7 20:39 Nitrofurantoin 100 mg PO once ordered. ck7 21:21 [facility] [place] Payment Agreement was scanned into [employer] and attached to record. b 06/03 11:10 T-Sheet-- Draft Copy was scanned into [employer] and attached to record. Point of Care Testing: Urine : 06/02 19:09 hCG Reading: Negative; Control Reading: Positive; ar3 Ranges: Administered Medications: 19:25 Drug: NS 0.9% 1000 ml [sodium chloride 0.9 % injection solution] Route: IV; Rate: rs3 bolus; Site: left antecubital; 19:30 Drug: Ondansetron 4 mg [ondansetron HCl 2 mg/mL intravenous solution (2 mL)] Route: rs3 IVP; Site: left antecubital; 19:35 Drug: pantoprazole 40 mg [pantoprazole 40 mg intravenous solution] Route: IV; Rate: rs3 bolus; Site: left antecubital; 20:47 Drug: Nitrofurantoin 100 mg Route: PO; rs3 Signatures: Dispatcher [employer] Ciara Velasquez, Reg Reg gb Velia Gibson,SHALOM RN rs3 Riley Mcdaniel, RPA-C RPA-Cck7 Asia Oviedo RN RN ead Beck, Gabriela gjb The chart was reviewed and I authenticate all verbal orders and agree with the evaluation and treatment provided.Attachments: 21:21 [facility] Payment Agreement gjb 06/03 11:10 T-Sheet-- Draft Copy gb Chart Complete MTDD
== END 2016-06-02 20:47 | disposition home or self-care (01) ==
LOC: M ED 17:32
DX: N39.0 Urinary tract infection, site not specified (principal)
CPT/HCPCS: 80048; 80076; 81001; 81025; 82150; 83690; 85025; 87086; 96374; 96375; 99284; C9113; J2405